=== PATIENT | female | born 1955 | race Caucasian/White ===

== ENCOUNTER 2020-09-01 13:47 | Emergency (ER) | payer BC, SELFPAY ==
[2020-09-01 14:02] VITALS: BP 153/89; PULSE 67; RESP 16; TEMP 36.8; O2SAT 97; BMI 24.3
--- NOTE | 2020-09-01 15:33 | W.ED.HEATRA ---
HPI - Head Injury General: Chief complaint: Head Injury Stated complaint: HIT ON HEAD Time Seen by Provider: 09/01/20 14:49 History of Present Illness: HPI Narrative: Recently fan fell from ceiling about 1 foot above her head striking the back of her head and she has small laceration back there is no active bleeding denies loss of consciousness nausea or vomiting now and feels fine Complaint: head injury Mechanism of Injury: other (Ceiling fan fell and hit her head) Place: home Loss of Consciousness: no Location of injury: occipital Severity: mild Severity scale (1-10): 1 Quality: sharp Radiation: none Other Injuries: laceration Associated symptoms: Reports no associated symptoms; Deny nausea or vomiting Review of Systems Const: Denies: fever(s), chills or body aches Eyes: Denies: change in vision or blurry vision ENMT: Denies: throat pain or nasal congestion Card: Denies: chest pain or dyspnea on exertion Resp: Denies: dyspnea, productive cough or non-productive cough GI: Denies: abdominal pain, nausea or vomiting Musc: Denies: extremity pain Skin/Breast: Reports: other (Laceration scalp); Denies: rash Neuro: Denies: headache(s) Psych: Denies: anxiety or depression Raymond/Lymph: Denies: easy bruising Physical Exam Const: COMMON NORMALS: no acute distress, average body habitus and patient oriented x3 HENMT: COMMON NORMALS: normocephalic HEAD & SCALP: normal to inspection and normocephalic FACE & SINUS: normal facial exam Eye: COMMON NORMALS: conjunctivae normal GENERAL EYE: appearance normal, both eyes and all related structures CONJUNCTIVA: Yes conjunctivae normal Neck/C-Spine: COMMON NORMALS: full ROM and no JVD GENERAL: Yes normal visual inspection Chest: COMMONS NORMALS: normal inspection of the chest Resp: COMMON NORMALS: normal respiratory effort and clear to auscultation bilaterally AUSCULTATION: clear to auscultation bilaterally Cardio: COMMON NORMALS: no JVD, regular rate and regular rhythm RATE: regular rate RHYTHM: regular rhythm GI: COMMON NORMALS: Normal to inspection, nondistended, normoactive bowel sounds present Extremity: COMMON NORMALS: normal to inspection and full ROM Neuro: COMMON NORMALS: patient oriented x3 and CN's II-XII intact bilaterally Skin: OTHER: 20s laceration occipital area skull some tenderness to the scalp no active bleeding no other injuries noted Procedures Laceration Laceration 1: Site: scalp Size (cm): 2.5 Description: linear Depth: simple, single layer Pre-repair: wound explored and irrigated extensively Skin layer closed with: other (Skin adhesive) Course Vital Signs: Vital signs: Vital Signs Temperature 98.3 F 09/01/20 14:02 Pulse Rate 67 09/01/20 14:02 Respiratory Rate 16 09/01/20 14:02 Blood Pressure 153/89 09/01/20 14:02 Pulse Oximetry 97 09/01/20 14:02 Discharge Plan Discharge Patient Disposition: Home Clinical Impression: Laceration Laceration of scalp Qualifiers: Encounter type: initial encounter Qualified Code(s): S01.01XA - Laceration without foreign body of scalp, initial encounter Condition: Stable Discharge Orders: Discharge Order (Routine); Ordered 09/01/20 Ordered By: Rashel Byrd Referrals: Lazarus Flynn, [Primary Care Provider] - Discharge Diet: Usual diet Discharge Activity: Increase activity as tolerated Patient Instructions: Skin Adhesive Care (ED) Activity Restrictions/Additional Instructions: Follow-up with medical provider as directed. Take Tylenol for discomfort can apply ice area. Return to the ER or your medical provider if condition worsens. Please read and understand discharge instructions. If any questions ask please. Discharge Date/Time: 09/01/20 15:12 Coding Level of Care Code ED Tableau Report Developer for Gino Fwuday Exam Comprehensive
== END 2020-09-01 15:12 | disposition home or self-care (01) ==
PROVIDERS: Emergency Provider Nurse Practitioner Family; Family Provider Family Medicine; PCP Family Medicine
DX: S01.01XA Laceration without foreign body of scalp, initial encounter (principal); W20.8XXA Other cause of strike by thrown, projected or falling object, initial encounter
CPT/HCPCS: 12001; 12345; 99281

== ENCOUNTER → 2021-01-14 11:18 | Outpatient (BNVA) | payer BC, SELFPAY | PROVIDERS: Family Provider Family Medicine; PCP Family Medicine; Visit Provider Family Medicine | DX: Z13.6 Encounter for screening for cardiovascular disorders (principal); M79.641 Pain in right hand; M54.42 Lumbago with sciatica, left side; G89.29 Other chronic pain; Z68.26 Body mass index [BMI] 26.0-26.9, adult | CPT/HCPCS: 80053; 80061; 85025; 85651; 86038; 86140; 86431 ==

== ENCOUNTER → 2022-03-27 13:53 | Outpatient (BNVA) | payer MEDICARE, SELFPAY | PROVIDERS: Family Provider Family Medicine; Visit Provider Family Medicine | DX: Z13.6 Encounter for screening for cardiovascular disorders (principal) | CPT/HCPCS: 80053; 80061; 85025 ==

== ENCOUNTER → 2022-04-23 10:47 | Outpatient (BNVA) | payer MEDICARE, SELFPAY | PROVIDERS: Family Provider Family Medicine; Referring Provider Family Medicine; Visit Provider Surgery | DX: Z12.11 Encounter for screening for malignant neoplasm of colon (principal) | CPT/HCPCS: 99024 ==

== ENCOUNTER 2022-06-25 05:58 | Day surgery (SDC) | payer MEDICARE, SELFPAY ==
[2022-06-23 12:50] VITALS: BMI 25.0
[2022-06-25 06:28] VITALS: BP 120/73; PULSE 75; RESP 18; TEMP 36.3; O2SAT 97
[2022-06-25] MEDS: sodium chloride 0.9% 1,000 ML 30 ML IV (06:43)
--- NOTE | 2022-06-25 06:51 | PM.HP ---
Providers/Chief Complaint Primary Care Provider: Catrina Weller DO Chief Complaint: need for colon cancer screen History of Present Illness Courtney Chen is a 66 year old female who comes in for colon cancer screening Review of Systems General: Reports: 10 or more systems reviewed and unremarkable except in HPI and below Medications/Allergies Home Medications Medication Instructions Recorded Confirmed Last Taken Type brimonidine [Alphagan] 1 % ophthalmic (eye) DAILY 01/14/21 06/23/22 06/24/22 History latanoprost 0.005 % eye drops 1 drp ophthalmic (eye) DAILY 06/23/22 06/23/22 06/24/22 History Allergies Allergy/AdvReac Type Severity Reaction Status Date / Time No Known Allergies Allergy Verified 05/28/22 14:28 PFSH Acute PFSH: Medical History Glaucoma Follows with Dr. Wade History of [place] spotted fever Surgical History History of lumpectomy of left breast benign Social History Smoking and tobacco status: never smoked Alcohol intake: current Alcohol intake frequency: holidays/special occasions only Vitals/I&O/Wt Last Vital Signs Temp 97.4 F L 06/25/22 06:28 Pulse 75 06/25/22 06:28 Resp 18 06/25/22 06:28 BP 120/73 06/25/22 06:28 Pulse Ox 97 06/25/22 06:28 O2 Del Method 06/25/22 06:28 Weight last 48 hrs Weight 165 lb Physical Exam Narrative: General : Patient is well developed , no acute distress, oriented x3 Head : Normal cephalic, a-traumatic. Ears : Pinnae and external canal are normal. Hearing is normal. Eyes : PERRLA, Sclera and injection are normal. No conjunctival discharge. Nose : Mucous membranes are without erythema. Throat : buccal mucosa is normal, gums are without significant recession or hypertrophy. Lungs : Equal chest rise bilaterally, no use of accessory muscles, trachea is midline. Cor : Rate and rhythm are normal. Abdomen : Soft, ND, NT, no g/r/m Extremities : No edema, no cyanosis or clubbing, dorsalis pedis pulses are present bilaterally, non-tender to palpation of calves. Upper extremities are normal bilaterally. Back : non-tender to palpation, no CVA tenderness. Neuro : CN II - XII intact, Upper and lower extremities have equal and full strength A&P Assessment and plan (1) Encounter for screening colonoscopy: Status: Acute Plan colonoscopy The risks and benefits of the procedure, including bleeding, infection, intestinal perforation requiring surgery, missed lesion, or explained to the patient. He is understanding of the risks and wishes to proceed. Attestations Medical Necessity Statement*: Patient will be discharged patient will be discharged home after the procedure Coding Level of Care Code Acute Religion Instructor for Chg Fwd Diagnoses Encounter for screening colonoscopy Z12.11
--- NOTE | 2022-06-25 06:55 | ANES.PREANE2 ---
Pre-Anesthetic Assessment Height/Weight: Height 1.73 m Weight 74.843 kg Temp Pulse Resp BP Pulse Ox O2 Del Method 97.4 F L 75 18 120/73 97 06/25/22 06:28 06/25/22 06:28 06/25/22 06:28 06/25/22 06:28 06/25/22 06:28 06/25/22 06:28 Preop Diagnosis: screening Operation Date: 06/25/22 07:30 Proposed Procedures p Colonoscopy 04940,Z12.11(Not Applicable) - Aleks Vinson DO Familial anesthetic complications: none Was Beta Michelle taken within 24 hours: N/A Was Clonidine taken within 24 hours: N/A Last intake: Intake Last Liquid Date 06/24/22 Last Liquid Time 22:00 Last Solid Date 06/23/22 Last Solid Time 17:00 Social No alcohol and No tobacco Exam alert, oriented x 3, clear to auscultation bilaterally and regular rate & rhythm Airway Submandibular: within normal limits Cervical ROM: within normal limits Mallampati: Class II History/ROS No significant history except as noted Pulmonary None reported CV/HEM None reported None reported Hepatic None reported GI None reported Metabolic None reported Musc/skel None reported Neuropsych None reported Anesthetic Plan ASA status: 2 Anesthesia: Anesthesia Evaluation, General and MAC Risk of > 500 ml blood loss (7ml/kg in children): No Medications/Allergies Home Medications Medication Instructions Recorded Confirmed Last Taken Type brimonidine [Alphagan] 1 % ophthalmic (eye) DAILY 01/14/21 06/23/22 06/24/22 History latanoprost 0.005 % eye drops 1 drp ophthalmic (eye) DAILY 06/23/22 06/23/22 06/24/22 History Allergies Allergy/AdvReac Type Severity Reaction Status Date / Time No Known Allergies Allergy Verified 05/28/22 14:28 Current Medications Generic Name Dose Route Start Last Admin Trade Name Freq PRN Reason Stop Dose Admin Sodium Chloride 1,000 mls @ 30 mls/hr 06/25/22 06:15 06/25/22 06:43 Sodium Chloride 0.9% IV 06/26/22 06:14 30 mls/hr .Q24H LUIS MANUEL Administration PFSH Anesthesia Medical History Glaucoma Follows with Dr. Wade History of [place] spotted fever Surgical History History of lumpectomy of left breast benign Social History Smoking and tobacco status: never smoked Alcohol intake: current Alcohol intake frequency: holidays/special occasions only Data Anesthesia Cardiac Studies: No Data to Display
[2022-06-25 07:53] VITALS: BP 91/56; PULSE 63; RESP 12; TEMP 36.3; O2SAT 96
[2022-06-25 08:06] VITALS: BP 105/75; PULSE 64; RESP 16; O2SAT 96
[2022-06-25 08:11] VITALS: BP 119/71; PULSE 62; RESP 16; O2SAT 100
--- NOTE | 2022-06-25 13:36 | ANE.PACU2 ---
Inpatient post-anesthesia follow up: Airway intact: Yes Vital signs: Temperature 97.4 F Pulse Rate 62 Respiratory Rate 16 Blood Pressure 119/71 Pulse Oximetry 100 Oxygen Delivery Me thod Room Air Oxygen Flow Rate Fraction of Inspir ed Oxygen Hydration adequate: Yes Nausea and vomiting: No Pain level: 1 Mental status: Baseline
== END 2022-06-25 08:30 | disposition home or self-care (01) ==
PROVIDERS: PCP Family Medicine; Visit Provider Surgery
PROC: 0DJD8ZZ Inspection of Lower Intestinal Tract, Via Natural or Artificial Opening Endoscopic (ICD-10-PCS; CPT 45378; principal; 2022-06-25 07:30)
DX: Z12.11 Encounter for screening for malignant neoplasm of colon (principal); K64.1 Second degree hemorrhoids
CPT/HCPCS: G0121; J2704; J7030

== ENCOUNTER → 2023-02-19 09:57 | Outpatient (BNVA) | payer MEDICARE, SELFPAY | PROVIDERS: PCP Family Medicine; Visit Provider Nurse Practitioner Family | DX: N30.01 Acute cystitis with hematuria (principal) | CPT/HCPCS: 81000 ==

== ENCOUNTER → 2023-04-06 13:30 | Outpatient (BNVA) | payer MEDICARE, SELFPAY | PROVIDERS: PCP Family Medicine; Visit Provider Family Medicine | DX: Z00.00 Encounter for general adult medical examination without abnormal findings (principal); Z13.6 Encounter for screening for cardiovascular disorders; Z78.0 Asymptomatic menopausal state | CPT/HCPCS: 80053; 80061; 85025 ==

== ENCOUNTER → 2023-05-01 12:55 | Outpatient (BNVA) | payer MEDICARE, SELFPAY | PROVIDERS: PCP Family Medicine; Visit Provider Registered Nurse Neonatal Intensive Care | DX: R30.0 Dysuria (principal); L25.9 Unspecified contact dermatitis, unspecified cause; N39.0 Urinary tract infection, site not specified; L23.7 Allergic contact dermatitis due to plants, except food | CPT/HCPCS: 81000; 87077; 87086; 87184 ==

== ENCOUNTER 2024-03-23 11:01 | Outpatient (CLI) | payer MEDICARE, SELFPAY ==
--- NOTE | 2024-03-23 11:06 | MM_ITS ---
WS: [id number] BILATERAL 3D TOMOSYNTHESIS DIGITAL SCREENING MAMMOGRAM WITH CAD CLINICAL INFORMATION: SCREENING HISTORY: Screening mammogram. No current complaints. COMPARISON: 2016 TECHNIQUE: Bilateral CC and MLO. FINDINGS: The breast are composed of extremely dense tissue, which can limit the detection of small underlying mass lesions. No suspicious focal mass, asymmetry, calcifications, or architectural distortion. No ev idence of malignancy. MM/[place] [id number] IMPRESSION: BI-RADS: 1-Negative FOLLOW UP: 1 Year Follow-up Recommend return to annual screening mammography.
== END 2024-03-23 11:02 | disposition home or self-care (01) ==
LOC: RAD 11:02
PROVIDERS: PCP Family Medicine; Visit Provider Electrodiagnostic Medicine
DX: Z12.31 Encounter for screening mammogram for malignant neoplasm of breast (principal); R92.30 Dense breasts, unspecified
CPT/HCPCS: 77063; 77067

== ENCOUNTER 2024-04-13 12:41 | Outpatient (CLI) | payer MEDICARE, SELFPAY ==
--- NOTE | 2024-04-13 12:49 | XR_ITS ---
WS: [id number] DEXA (DUAL ENERGY X-RAY ABSORPTIOMETRY) Bone mineral density was performed using a Where I've Been machine. HISTORY: POSTMENOPAUSAL STATE COMPARISON: None available. Lumbar spine BMD (L1-L4): 1.498 g/cm2 T score: 2.7 Z score: 4.0 Total hip BMD: Left: 1.011 g/cm2. T score: 0.0 Z score: 1.1 Right: 0.973 g/cm2. T score: -0.3 Z score: 0.8 10 year probability of a major osteoporotic fracture is 19.4%. XR/XR DEXA axial skeleton* [id number] IMPRESSION: NORMAL BONE MINERAL DENSITY based upon the WHO classification for females.
== END 2024-04-13 12:42 | disposition home or self-care (01) ==
LOC: RAD 12:43
PROVIDERS: PCP Electrodiagnostic Medicine; Visit Provider Electrodiagnostic Medicine
DX: Z78.0 Asymptomatic menopausal state (principal)
CPT/HCPCS: 77080

== ENCOUNTER 2025-08-17 09:53 | Outpatient (CLI) | payer MEDICARE, SELFPAY ==
--- NOTE | 2025-08-17 | MM_ITS ---
WS: [id number] BILATERAL SCREENING DIGITAL TOMOSYNTHESIS MAMMOGRAM WITH CAD HISTORY: ANNUAL SCREENING COMPARISON: 03/23/2024, 03/03/2016 Bilateral CC and MLO views with tomosynthesis and synthetic mammography submitted. Computer aided detection analyzed. Breast composition: The breasts are heterogeneously dense, which may obscure small masses. No suspicious masses, microcalcifications or architectural distortion. MM/MM scr BI tomosynthesis [id number] IMPRESSION: BI-RADS: 1 - Negative FOLLOW UP: 1 Year Follow-up
== END 2025-08-17 09:54 | disposition home or self-care (01) ==
LOC: RAD 09:56
PROVIDERS: PCP Electrodiagnostic Medicine; Visit Provider Electrodiagnostic Medicine
DX: Z12.31 Encounter for screening mammogram for malignant neoplasm of breast (principal); R92.333 Mammographic heterogeneous density, bilateral breasts
CPT/HCPCS: 77063; 77067